=== PATIENT | male | born 1975 | race Caucasian/White ===

== ENCOUNTER 2021-05-25 10:53 | Emergency (ER) | payer MEDICAID ==
[~2021-05-25] VITALS: Ht 170.2 cm; Wt 77.0 kg
[2021-05-25] MEDS ORDERED: LIDOCAINE HCL/PF 1% 10 MG/ML 5ML VIAL INFIL ONE (11:30)
[2021-05-25] MEDS ORDERED: ACETAMINOPHEN 325MG TABLET PO ONE (11:30)
[2021-05-25] MEDS ORDERED: IBUPROFEN 600MG TABLET PO ONE (11:30)
[2021-05-25] MEDS ORDERED: LIDOCAINE HCL/EPINEPHRINE 1%-EPI 1:100,000 20 ML VIAL INFIL ONE (11:30)
[2021-05-25] MEDS ORDERED: BACITRACIN ZINC OINT UDPKT TOP ONE ×2 (11:30)
[2021-05-25] MEDS ORDERED: TETANUS, DIPHTHERIA, PERTUSSIS VAC/PF 0.5ML (>10YR OLD) IM ONE (11:30)
[2021-05-25] MEDS ORDERED: HYDROCODONE/ACETAMINOPHEN 5/325MG TABLET PO ONE (11:30)
[2021-05-25 11:40] VITALS: BP 136/85
[2021-05-25] MEDS ORDERED: CEFTRIAXONE SODIUM 1 G/VIAL IM ONE (12:15)
[2021-05-25] MEDS ORDERED: TRAM50TA94 MT (13:47)
[2021-05-25] MEDS ORDERED: IBUP-2028 MT (13:47)
[2021-05-25] MEDS ORDERED: CEPH500C2 MT (13:47)
== END 2021-05-25 15:34 | disposition home or self-care (01) ==
LOC: ER 10:53
DX: S62.501A Fracture of unspecified phalanx of right thumb, initial encounter for closed fracture (principal); X58.XXXA Exposure to other specified factors, initial encounter; Y93.89 Activity, other specified; Y92.89 Other specified places as the place of occurrence of the external cause; Y99.8 Other external cause status
CPT/HCPCS: 12004; 73130; 90471; 90715; 96372; 99284; J3490; Z7610

== ENCOUNTER 2024-07-10 14:27 | Emergency (ER) | payer SELFPAY ==
[~2024-07-10] VITALS: Ht 172.7 cm; Wt 80.0 kg
[~2024-07-10 14:27] MED LIST: CEPH500C2 MT; IBUP-2028 MT; TRAM50TA94 MT
[2024-07-10 14:38] VITALS: O2SAT 98
[2024-07-10] MEDS ORDERED: TETANUS, DIPHTHERIA, PERTUSSIS VAC/PF 0.5ML (>10YR OLD) IM ONE (15:30)
[2024-07-10] MEDS ORDERED: CIPR750T4 MT (16:12)
[2024-07-10 16:36] VITALS: BP 132/82; PULSE 88; RESP 18; TEMP 36.9; O2SAT 98
== END 2024-07-10 16:38 | disposition home or self-care (01) ==
LOC: ER 14:27
DX: S91.332A Puncture wound without foreign body, left foot, initial encounter (principal); Z79.899 Other long term (current) drug therapy; Z98.890 Other specified postprocedural states; W45.0XXA Nail entering through skin, initial encounter; Y93.89 Activity, other specified; Y92.89 Other specified places as the place of occurrence of the external cause; Y99.8 Other external cause status
CPT/HCPCS: 90715; 99283